=== PATIENT | female | born 1965 | race Caucasian/White ===

== ENCOUNTER 2016-11-09 09:56 | Emergency (ER) | payer BC ==
--- NOTE | 2016-11-16 08:15 | ER ---
ADMIT: 11/09/2016 RM/LOC: ER [facility] MR#: [id number] [place], [place] [address] [address] [place] [address] Emergency Room Report SEX: F AGE: 51 : 1965 DATE: 11/09/2016 HISTORY OF PRESENT ILLNESS: The patient is a 51-year-old female, and Finnish speaking, presents to the emergency room with chest pain, discomfort, and palpitations that started yesterday. She thought about coming to the ER, but did not until today because she said the pain improved, but then she felt weak in her legs and decided to come to the emergency room. There is no radiation of this pain. She did not have any nausea, vomiting, sweating, or shortness of breath. She did have palpitations, but no weakness except in her extremities. No dizziness. REVIEW OF SYSTEMS: Otherwise negative. PAST MEDICAL HISTORY: Cardiac disease with some cardiomyopathy. Ejection fraction of 35% per an echo done on 10/10/2016. MEDICATIONS: She is on Entresto and Nexium regular basis. SOCIAL HISTORY: She denies smoking drugs or alcohol. PHYSICAL EXAMINATION: GENERAL: Pretty anxious-looking female , obese. VITAL SIGNS: Blood pressure 147/66 with a heart rate of 91, respirations 96, temp is 98.1, and O2 sats 99%. CHEST: No reproducible chest discomfort. ABDOMEN: Tenderness in epigastrium. No radiation of the discomfort on her neck or arms. SKIN: Good color and turgor. EXTREMITIES: Good. NEUROLOGIC: Oriented x4. Mood and affect are appropriate. LABORATORY DATA: CBC within normal limits. CMP has a calcium of 8.0 and albumin 3.3. H. pylori reactive. Troponin less than 0.015. Urine blood 3+ with rbc's of 18. Upon questioning, she says she is on her menses. Chest x- ray, no pathology. CLINICAL IMPRESSION: 1. Gastritis. 2. Helicobacter pylori. 3. Chest pain noncardiac. ADMIT: 11/09/2016 RM/LOC: ER [facility] MR#: [id number] [id number] [address] [address] [place] [address] Emergency Room Report SEX: F AGE: 51 : 1965 Her EKG was compared to previous EKG done in September 2016. Dr. Daigle reviewed it. There is left bundle-branch block with a rate of 79, and it is no different than the previous EKG. At that time, she had an echo done by Dr. Sinclair. The patient is advised to follow up with her primary provider as well as follow up with Dr. Emir Sinclair. She will go home with a Holter monitor for 48 hours. While she was in the ER, she had no difficulty, felt no palpitations, and no pain. She sent home with a prescription for amoxicillin and clarithromycin and for her to continue taking her Nexium on a regular basis. Instructions given for followup and care of her gastritis. GI cocktail given in the ER. NICOLE Kitchen / Jarod Daigle MD / [employer]rol JOB #: [id number] CC: Jarod Daigle MD, Attending Physician Porfirio Sands MD, Family Physician Emir Sinclair MD
== END 2016-11-09 13:45 | disposition home or self-care (01) ==
LOC: ER 09:56
DX: K29.00 Acute gastritis without bleeding (principal); R07.89 Other chest pain; B96.81 Helicobacter pylori [H. pylori] as the cause of diseases classified elsewhere; Z90.710 Acquired absence of both cervix and uterus; Z79.899 Other long term (current) drug therapy

== ENCOUNTER → 2017-01-23 | Outpatient (CLI) | payer BC | END | disposition home or self-care (01) | LOC: RAD.S 14:59 | DX: Z12.31 Encounter for screening mammogram for malignant neoplasm of breast (principal) ==